=== PATIENT | female | born 1955 | race Caucasian/White ===

== ENCOUNTER 2017-04-04 13:11 | Inpatient (IN) | payer OTHER ==
[2017-04-04] MEDS: traMADol 50 MG TAB PO ×2 (12:00→18:00)
[2017-04-04] MEDS ORDERED: HYDROCODONE/APAP (5/325) TAB PO (14:30)
[2017-04-04] MEDS: SOD CHLORIDE 0.9% 1,000 ML IV ×2 (14:59→20:34)
[2017-04-04] MEDS: morphine 2 MG INJ IV ×3 (15:32→21:42)
[2017-04-04] MEDS ORDERED: BETHANECHOL 25 MG TAB PO (17:00)
[2017-04-04] MEDS ORDERED: SENNA/DOCUSATE NA (8.6MG/50MG) TAB PO (17:00)
[2017-04-04] MEDS ORDERED: MAGNESIUM HYDROXIDE 30ML CUP PO (17:00)
[2017-04-04] MEDS ORDERED: NACL 0.9% 3 ML SYG IV (17:00)
[2017-04-04] MEDS ORDERED: KETOROLAC 15 MG INJ IV (17:00)
[2017-04-04] MEDS ORDERED: TRANEXAMIC ACID IVPB (17:00)
[2017-04-04] MEDS ORDERED: CEFAZOLIN 1 GM/50 ML (PMX) 50 ML IVPB (17:00)
[2017-04-04] MEDS: ASPIRIN (EC) 325 MG TAB PO ×3 (17:00→21:00)
[2017-04-04] MEDS ORDERED: DIPHENHYDRAMINE 50 MG INJ IM (17:00)
[2017-04-04] MEDS ORDERED: oxyCODONE 5 MG TAB PO ×3 (17:00→20:00)
[2017-04-04] MEDS ORDERED: ZOLPIDEM 5 MG TAB PO (17:00)
[2017-04-04] MEDS ORDERED: BISACODYL 10 MG SUPP PR (17:00)
[2017-04-04] MEDS ORDERED: DEXTROSE 5% IVPB (17:00)
[2017-04-04] MEDS ORDERED: NA PHOSPHATE/BIPHOS 133 ML ENEMA PR (17:00)
[2017-04-04] MEDS ORDERED: NALOXONE (0.4 MG/ML) INJ IV (17:00)
[2017-04-04] MEDS: HIP PAIN COCKTAIL (CEFUROXIME) INJ ×2 (17:30→19:50)
[2017-04-04] MEDS ORDERED: morphine SULFATE/PF (10 MG/10 ML) INJ (17:37)
[2017-04-04] MEDS ORDERED: PROPOFOL 20 ML (17:58)
[2017-04-04] MEDS ORDERED: SUCCINYLCHOLINE CHLORIDE 100 MG/5 ML SYG IV (17:58)
[2017-04-04] MEDS ORDERED: ROCURONIUM 50 MG INJ (17:58)
[2017-04-04] MEDS ORDERED: CEFAZOLIN 1 GM INJ (17:58)
[2017-04-04] MEDS ORDERED: LIDOCAINE 2% (SDV) 5 ML INJ (17:58)
[2017-04-04] MEDS: POLYMYXIN B 500000 UNIT INJ (18:25)
[2017-04-04] MEDS: BACITRACIN 50000 UNITS INJ (18:25)
[2017-04-04] MEDS ORDERED: DIPHENHYDRAMINE 50 MG INJ IV (18:30)
[2017-04-04] MEDS ORDERED: METOCLOPRAMIDE 10 MG INJ IV (18:30)
[2017-04-04] MEDS ORDERED: ONDANSETRON 4 MG INJ IV (18:30)
[2017-04-04] MEDS: DEXTROSE 5% IVPB (18:30)
[2017-04-04] MEDS: TRANEXAMIC ACID IVPB (18:30)
[2017-04-04] MEDS ORDERED: FENTAnyl 50 MCG/ML VIAL IV ×2 (18:30)
[2017-04-04] MEDS ORDERED: PROCHLORPERAZINE 10 MG INJ IM (20:00)
[2017-04-04] MEDS ORDERED: DIPHENHYDRAMINE 25 MG CAP PO (20:00)
[2017-04-04] MEDS: MEPERIDINE 25 MG INJ IV (20:32)
[2017-04-04] MEDS: KETOROLAC 30 MG INJ IV (20:32)
[2017-04-04] MEDS: ONDANSETRON 4 MG INJ IV ×2 (20:32→23:00)
[2017-04-04] MEDS: DOCUSATE SODIUM 100 MG CAP PO (20:33)
[2017-04-04] MEDS: CEFAZOLIN 1 GM/50 ML (PMX) 50 ML IVPB (20:34)
[2017-04-04] MEDS ORDERED: DOCUSATE SODIUM 100 MG CAP PO (21:00)
[2017-04-04] MEDS: LACTATED RINGER'S 1,000 ML IV (22:46)
[2017-04-05] MEDS: oxyCODONE 5 MG TAB PO ×3 (01:45→21:24)
[2017-04-05] MEDS: LACTATED RINGER'S 1,000 ML IV ×3 (03:55→19:55)
[2017-04-05] MEDS: CEFAZOLIN 1 GM/50 ML (PMX) 50 ML IVPB ×2 (04:34→11:34)
[2017-04-05] MEDS: KETOROLAC 30 MG INJ IV ×2 (04:35→11:33)
[2017-04-05] MEDS: ONDANSETRON 4 MG INJ IV ×2 (04:48→11:33)
[2017-04-05] MEDS: SOD CHLORIDE 0.9% 1,000 ML IV ×2 (05:25→17:14)
[2017-04-05] MEDS: PANTOPRAZOLE (EC) 40 MG TAB PO (06:00)
[2017-04-05] MEDS: traMADol 50 MG TAB PO ×4 (06:55→17:32)
[2017-04-05] MEDS ORDERED: LEVOTHYROXINE 112 MCG TAB PO ×2 (07:00→08:00)
[2017-04-05] MEDS: DOCUSATE SODIUM 100 MG CAP PO ×2 (08:17→21:23)
[2017-04-05] MEDS: FERROUS FUMARATE (SR) TAB PO ×2 (08:17→21:23)
[2017-04-05] MEDS: ASPIRIN (EC) 325 MG TAB PO ×2 (08:17→21:23)
[2017-04-05] MEDS: ESCITALOPRAM 10 MG TAB PO (08:17)
[2017-04-05] MEDS: HYDROCHLOROTHIAZIDE 12.5 MG CAP PO (08:18)
[2017-04-05] MEDS: LEVOTHYROXINE 112 MCG TAB PO (08:18)
[2017-04-05 08:46] LABS: ADD MAN DIFF? NO
[2017-04-05 08:51] LABS: WHITE BLOOD COUNT 9.8 10^3/ul (4.8-10.8)
[2017-04-05 08:51] LABS: BASOPHILS % 0.1 % (0.0-2.0); EOSINOPHILS # 0.1 10^3/ul (0.0-0.5); EOSINOPHILS % 0.7 % (0.0-7.0); HEMATOCRIT 29.2 % (37.0-47.0); HEMOGLOBIN 9.6 g/dl (12.0-16.0); LYMPHOCYTES # 1.1 10^3/ul (0.8-2.9); LYMPHOCYTES % 10.7 % (15.0-51.0); MEAN CORPUSCULAR HEMOGLOBIN 29.4 pg (29.0-33.0); MEAN CORPUSCULAR HGB CONC 32.9 g/dl (32.0-37.0); MEAN CORPUSCULAR VOLUME 89.6 fl (82.0-101.0); MEAN PLATELET VOLUME 10.2 fl (7.4-10.4); MONOCYTE # 0.8 10^3/ul (0.3-0.9); MONOCYTES % 8.2 % (0.0-11.0); NEUTROPHIL # 7.8 10^3/ul (1.6-7.5); NEUTROPHILS % 79.7 % (39.0-77.0); PLATELET COUNT 171 10^3/UL (140-415); RED BLOOD COUNT 3.26 10^6/ul (4.20-5.40); RED CELL DISTRIBUTION WIDTH 12.9 % (11.5-14.5)
[2017-04-05] MEDS ORDERED: CELECOXIB 200 MG CAP PO ×2 (09:00)
[2017-04-05] MEDS: morphine 2 MG INJ IV (09:09)
[2017-04-05 09:21] LABS: ANION GAP 11 (8-16); BLOOD UREA NITROGEN 12 mg/dl (7-20); CALCIUM 7.4 mg/dl (8.4-10.2); CARBON DIOXIDE 31 mmol/L (21-31); CHLORIDE 95 mmol/L (97-110); CREATININE 0.94 mg/dl (0.44-1.00); GLUCOSE 109 mg/dl (70-220); POTASSIUM 4.2 mmol/L (3.5-5.1); SODIUM 133 mmol/L (135-144)
[2017-04-05] MEDS ORDERED: FAMOTIDINE 20 MG TAB PO (21:00)
[2017-04-05] MEDS: traZODone 50 MG TAB PO (21:23)
[2017-04-06] MEDS: LACTATED RINGER'S 1,000 ML IV (03:55)
[2017-04-06 05:13] LABS: ADD MAN DIFF? NO
[2017-04-06 05:15] LABS: BASOPHILS % 0.3 % (0.0-2.0); EOSINOPHILS # 0.1 10^3/ul (0.0-0.5); EOSINOPHILS % 0.6 % (0.0-7.0); HEMATOCRIT 26.9 % (37.0-47.0); LYMPHOCYTES # 0.6 10^3/ul (0.8-2.9); LYMPHOCYTES % 5.6 % (15.0-51.0); MEAN CORPUSCULAR HEMOGLOBIN 29.8 pg (29.0-33.0); MEAN CORPUSCULAR HGB CONC 33.5 g/dl (32.0-37.0); MEAN CORPUSCULAR VOLUME 89.1 fl (82.0-101.0); MEAN PLATELET VOLUME 10.6 fl (7.4-10.4); MONOCYTE # 0.7 10^3/ul (0.3-0.9); MONOCYTES % 6.4 % (0.0-11.0); NEUTROPHIL # 9.5 10^3/ul (1.6-7.5); NEUTROPHILS % 86.5 % (39.0-77.0); PLATELET COUNT 161 10^3/UL (140-415); RED BLOOD COUNT 3.02 10^6/ul (4.20-5.40); RED CELL DISTRIBUTION WIDTH 12.8 % (11.5-14.5)
[2017-04-06 05:38] LABS: ANION GAP 12 (8-16); BLOOD UREA NITROGEN 14 mg/dl (7-20); CALCIUM 7.1 mg/dl (8.4-10.2); CARBON DIOXIDE 31 mmol/L (21-31); CHLORIDE 89 mmol/L (97-110); CREATININE 0.92 mg/dl (0.44-1.00); GLUCOSE 129 mg/dl (70-220); POTASSIUM 4.2 mmol/L (3.5-5.1); SODIUM 128 mmol/L (135-144)
[2017-04-06] MEDS: SOD CHLORIDE 0.9% 1,000 ML IV (06:25)
[2017-04-06] MEDS: traMADol 50 MG TAB PO ×3 (06:41→12:00)
[2017-04-06] MEDS: PANTOPRAZOLE (EC) 40 MG TAB PO (06:41)
[2017-04-06] MEDS: LEVOTHYROXINE 112 MCG TAB PO (06:43)
[2017-04-06] MEDS: DOCUSATE SODIUM 100 MG CAP PO (09:55)
[2017-04-06] MEDS: FERROUS FUMARATE (SR) TAB PO (09:55)
[2017-04-06] MEDS: ASPIRIN (EC) 325 MG TAB PO (09:55)
[2017-04-06] MEDS: ESCITALOPRAM 10 MG TAB PO (09:55)
[2017-04-06] MEDS: HYDROCODONE/APAP (5/325) TAB PO (14:17)
[2017-04-06 14:42] LABS: ANION GAP 11 (8-16); BLOOD UREA NITROGEN 16 mg/dl (7-20); CARBON DIOXIDE 30 mmol/L (21-31); CHLORIDE 90 mmol/L (97-110); CREATININE 0.97 mg/dl (0.44-1.00); GLUCOSE 124 mg/dl (70-220); POTASSIUM 3.9 mmol/L (3.5-5.1); SODIUM 127 mmol/L (135-144)
[2017-04-07] MEDS ORDERED: ALENDRONATE 70 MG TAB PO (06:30)
== END 2017-04-06 17:50 | disposition home health service (06) | DRG 470 ==
LOC: MS1 13:11
PROC: 0SRB04Z Replacement of Left Hip Joint with Ceramic on Polyethylene Synthetic Substitute, Open Approach (ICD-10-PCS; principal; 2017-04-04 16:00)
DX: S72.002A Fracture of unspecified part of neck of left femur, initial encounter for closed fracture (principal); E87.1 Hypo-osmolality and hyponatremia; I10 Essential (primary) hypertension; E03.9 Hypothyroidism, unspecified; F32.9 Major depressive disorder, single episode, unspecified; D64.9 Anemia, unspecified; D72.829 Elevated white blood cell count, unspecified; M81.0 Age-related osteoporosis without current pathological fracture; W18.30XA Fall on same level, unspecified, initial encounter; Y93.K1 Activity, walking an animal
CPT/HCPCS: 72170; 73500; 73510; 73530; 80048; 85025; 97110; 97116; 97162; 97165; 97530; 97535